=== PATIENT | female | born 1940 | race Caucasian/White ===

== ENCOUNTER 2017-10-09 22:10 | Emergency (ER) | payer OTHER ==
[~2017-10-09] VITALS: Ht 160 cm; Wt 83.9 kg
[2017-10-09 22:43] VITALS: Ht 160 cm; Wt 83.9 kg
[2017-10-09 23:21] LABS: BASOPHIL % 0.3 % (0-2); RED CELL DISTRIBUTION WIDTH 13.8 % (11.5-14.5)
[2017-10-09 23:26] LABS: PLATELET COUNT 83 x10^3mcL (130-400)
[2017-10-09 23:35] LABS: CALCIUM 8.8 mg/dL (8.5-10.1); CARBON DIOXIDE 25.8 mmol/L (21-32); CHLORIDE SERUM 107 mmol/L (98-107); CREATININE SERUM 0.8 mg/dL (0.6-1.0); GLUCOSE SERUM 92 mg/dL (74-106); POTASSIUM SERUM 3.9 mmol/L (3.5-5.1); SODIUM SERUM 142 mmol/L (136-145)
[2017-10-09 23:39] LABS: ALBUMIN 3.7 g/dL (3.4-5.0); ALKALINE PHOSPHATASE 84 U/L (46-116); ALT/SGPT 15 U/L (14-59); AST/SGOT 18 U/L (15-37); BILIRUBIN TOTAL 0.47 mg/dL (0.20-1.00); CHOLESTEROL 160 mg/dL (<200); TOTAL PROTEIN, SERUM 7.3 g/dL (6.4-8.2)
[2017-10-10 01:42] VITALS: BP 132/68
== END 2017-10-10 01:42 | disposition home or self-care (01) ==
LOC: ED 22:10
PROVIDERS: Specialist
DX: F43.0 Acute stress reaction (principal); R42 Dizziness and giddiness; I95.9 Hypotension, unspecified
CPT/HCPCS: 36415; 83880; G0480